=== PATIENT | female | born 1955 | race Caucasian/White ===

== ENCOUNTER 2024-02-10 13:31 | Emergency (ER) | payer MEDICARE, MEDICAID ==
[~2024-02-10] VITALS: Ht 139.7 cm; Wt 44.6 kg
[2024-02-10 13:34] VITALS: BP 173/93; PULSE 64; RESP 18; TEMP 97.4; O2SAT 99
[2024-02-10] MEDS: MORPHINE SULFATE 4 MG/ML SYR IM ONE (14:39)
[2024-02-10] MEDS ORDERED: CIPR500T4 PO (14:58)
[2024-02-10] MEDS ORDERED: ACET-8905 PO (14:58)
[2024-02-10 15:07] VITALS: BP 145/88; PULSE 66; RESP 16; TEMP 98; O2SAT 99
== END 2024-02-10 15:07 | disposition home or self-care (01) ==
LOC: MED 13:31
DX: N39.0 Urinary tract infection, site not specified (principal); I10 Essential (primary) hypertension; Z85.9 Personal history of malignant neoplasm, unspecified
CPT/HCPCS: 81002; 96372; 99283; J2270